=== PATIENT | male | born 1985 ===

== ENCOUNTER 2020-11-19 16:11 | Emergency (ER) | payer BC ==
[2020-11-19] MEDS ORDERED: Ondansetron 4 MG/2 ML SDV IVPUSH ONE (16:50)
[2020-11-19] MEDS ORDERED: Sodium Chloride 0.9% 10 ML Syringe FLUSH PRN (16:50)
[2020-11-19] MEDS ORDERED: Ketorolac 30 MG/ML SDV IVPUSH ONE (16:50)
[2020-11-19] MEDS ORDERED: Sodium Chloride 0.9% 1,000 ML IV ONE (16:50)
[2020-11-19] MEDS ORDERED: Sodium Chloride 0.9% 2.5 ML Syringe FLUSH PRN (16:50)
--- NOTE | 2020-11-19 16:56 | EDM.PDOC ---
ED HPI GENERAL MEDICAL PROBLEM - General Chief Complaint: General Stated Complaint: LIVER PROBLEMS Time Seen by Provider: 11/19/20 16:14 Source of Information: Reports: Patient History Limitations: Reports: No Limitations - History of Present Illness INITIAL COMMENTS - FREE TEXT/NARRATIVE: HISTORY AND PHYSICAL: History of present illness: Patient is a 34-year-old male who presents to the emergency department after he was notified by the urgent care that he needed to be seen in the emergency department for a low white blood cell count and he is not sure what else. The patient had presented to the urgent care for complaints of coughing, diarrhea, headache for approximately 10 days. The patient states that he was told he was Covid negative. The patient states that his symptoms have been unchanged since earlier. He does deny any abdominal pain. He denies shortness of breath. He states that he has been attempting to eat but just has not had an appetite. He denies any urinary symptoms. In the emergency department the patient is hemodynamically stable at 150/83 with a pulse of 89. The patient is in no respiratory distress as his respiratory rate is 18 with an SPO2 of 93% on room air. The patient is afebrile with a temperature of 97.8. Review of systems: As per history of present illness and below otherwise all systems reviewed and negative. Past medical history: As per history of present illness and as reviewed below otherwise noncontributory. Surgical history: As per history of present illness and as reviewed below otherwise noncontributory. Social history: See social history for further information Family history: As per history of present illness and as reviewed below otherwise noncontributory. Physical exam: General: Well developed and well nourished. Alert and orientated x 3. Nontoxic in appearance and in no acute distress. Vital signs are stable and have been reviewed by me. Nursing notes were reviewed. HEENT: Atraumatic, normocephalic, pupils equal and reactive bilaterally, negative for conjunctival pallor or scleral icterus, mucous membranes moist, TMs normal bilaterally, throat clear, neck supple, nontender, trachea midline. No drooling or trismus noted. No meningeal signs. No hot potato voice noted. Lungs: Clear to auscultation bilaterally. No wheezes, rales, or rhonchi. Chest nontender. Normal work of breathing, no accessory muscles used. Heart: S1S2, regular rate and rhythm without overt murmur, gallops, or rubs. No JVD. No peripheral edema Abdomen: Soft, nondistended, nontender. Normoactive bowel sounds. Negative for masses or costovertebral tenderness. Skin: Intact, warm, dry. No lesions or rashes noted. Hematologic: No petechiae or purpra. Mucosa appropriate color and normal nail bed color and refill. Extremities: Atraumatic, moves all extremities per self without difficulty or deficits, negative for cords or calf pain. Neurovascular unremarkable. Neuro: Awake, alert, oriented. Cranial nerves II through XII unremarkable. Cerebellum unremarkable. Motor and sensory unremarkable throughout. Exam nonfocal. Psychiatric: Mood and affect are appropriate. Normal thought process. Answering questions appropriately. Notes: *This patient was seen and evaluated during the 2019 SARS-CoV-2 novel coronavirus pandemic period. Community viral transmission is ongoing at time of this encounter and the emergency department is operating under pandemic response procedures. Outpatient chest x-ray impression: Mild interstitial opacities in the lower lungs bilaterally per radiologist. The patient's outpatient CBC showed a WBC count of 2.59 and a platelet count of 87. The patient's CMP was remarkable for a glucose of 162, calcium 8.1, AST 118, and ALT 13. His COVID-19 swab was negative. Nurse boom Cross office called and asked the patient to go to the emergency room with his low white blood cell count and platelet count of 87. Upon calling nurse boom Cross's office she stated that she wanted the patient scanned as his COVID-19 was negative she was unsure of the decreased white blood cell count and the platelet count. This all could be explained by a viral illness. I spoke with the patient and verbalized nurse boom Crosss concerns and wants. The patient is agreeable with an abdominal/pelvis CT scan. I will treat the patient's nausea and vomiting with IV fluids, Zofran, and treat his discomfort with Toradol. Abdominal pelvis CT IMPRESSION: 1. No dilated bowel or focal inflammation. 2. Bilateral ground-glass opacities and patchy consolidation within both lungs suggestive of pneumonia. Viral pneumonia including COVID-19 would be a consideration for this appearance. The patient's CT blood work are suggestive of the patient having COVID-19 even though his COVID-19 swab was negative. The patient is on day 10 and I have instructed him as that he needs to treat his symptoms. His O2 saturation is normal at 93% on room air with a respiratory rate of 18. I have talked with the patient about today's findings, in addition to providing specific details for plan of care. Reassessment at the time of disposition demonstrates that the patient is in no acute distress. The patient is stable for discharge, counseling was provided and we discussed in great detail signs and symptoms that would prompt them to return to the Emergency Department. Medication, follow up and supportive care measures were reviewed and discussed. Voices understanding and is agreeable to plan of care. Denies any further questions or concerns at this time. Diagnostics: Abdomen pelvis CT Therapeutics: IV fluids, Zofran, Toradol Impression: Viral illness Plan: 1. You were evaluated today on an emergent basis. Your complaints of low white blood cell count and a low platelet count was evaluated with a abdominal and pelvic CT. Your CT showed bilateral viral pneumonia suggestive of COVID-19. Even though your COVID-19 test was negative all your test results are indicative of having Covid. At this point I would say you are COVID-19 and should quarantine, however, as you are at the 10-day point this might be a moot point for you. I would treat your symptoms. Get plenty of rest. And make sure you take in plenty of fluids. 2. You can alternate Tylenol and ibuprofen as needed for pain and fever management. 3. We encourage you to follow up with your primary care provider and/or recommended specialist in the next few days for re-evaluation and further care/management. 4. If your symptoms should worsen, new symptoms develop or any of the signs and symptoms we discussed should arise please return to the emergency room or call 911 (if needed). Definitive disposition and diagnosis as appropriate pending reevaluation and review of above. Right Head Pain Score (Numeric/FACES): 6 - Related Data Allergies Allergy/AdvReac Type Severity Reaction Status Date / Time No Known Allergies Allergy Verified 11/19/20 16:30 Home Meds: Home Meds . [No Known Home Meds] 11/19/20 [History] Past Medical History - Past Health History Medical/Surgical History: Denies Medical/Surgical History - Infectious Disease History Infectious Disease History: Reports: None Social & Family History - Family History Family Medical History: No Pertinent Family History - Tobacco Use Tobacco Use Status *Q: Never Tobacco User - Caffeine Use Caffeine Use: Reports: Coffee, Soda - Recreational Drug Use Recreational Drug Use: No ED ROS GENERAL - Review of Systems Review Of Systems: Comprehensive ROS is negative, except as noted in HPI. ED EXAM, GENERAL - Physical Exam Exam: See Below (See dictation) Course - Vital Signs Last Recorded V/S: Last Vital Signs Temp 97.2 F 11/19/20 18:46 Pulse 83 11/19/20 18:46 Resp 18 11/19/20 18:46 BP 126/68 11/19/20 18:46 Pulse Ox 93 L 11/19/20 18:46 - Orders/Labs/Meds Meds: Medications Discontinued Medications Generic Name Dose Route Start Last Admin Trade Name Freq PRN Reason Stop Dose Admin Sodium Chloride 1,000 mls @ 999 mls/hr 11/19/20 16:50 11/19/20 17:36 Normal Saline IV 11/19/20 17:50 999 mls/hr .BOLUS ONE Administration Iopamidol 100 ml 11/19/20 17:26 11/19/20 17:27 Iopamidol 755 Mg/Ml 500 Ml Multipack Bottle IVPUSH 11/19/20 17:27 100 ml ONETIME ONE Administration Ketorolac Tromethamine 30 mg 11/19/20 16:50 11/19/20 17:37 Ketorolac 30 Mg/Ml Sdv IVPUSH 11/19/20 16:51 30 mg ONETIME ONE Administration Ondansetron HCl 4 mg 11/19/20 16:50 11/19/20 17:37 Ondansetron 4 Mg/2 Ml Sdv IVPUSH 11/19/20 16:51 4 mg ONETIME ONE Administration Sodium Chloride 10 ml 11/19/20 16:50 11/19/20 17:37 Sodium Chloride 0.9% 10 Ml Syringe FLUSH 10 ml ASDIRECTED PRN Administration Keep Vein Open Sodium Chloride 2.5 ml 11/19/20 16:50 11/19/20 17:37 Sodium Chloride 0.9% 2.5 Ml Syringe FLUSH 2.5 ml ASDIRECTED PRN Administration Keep Vein Open Departure - Departure Time of Disposition: 18:39 Disposition: Home, Self-Care 01 Condition: Good Clinical Impression: COVID-19 - Discharge Information *PRESCRIPTION DRUG MONITORING PROGRAM REVIEWED*: Not Applicable *COPY OF PRESCRIPTION DRUG MONITORING REPORT IN PATIENT FRANKIE: Not Applicable Instructions: COVID-19: What Your Test Results Mean - [facility] (07/12/2019) Referrals: Lroa Harkins [Primary Care Provider] - Forms: ED Department Discharge Additional Instructions: The following information is given to patients seen in the emergency department who are being discharged to home. This information is to outline your options for follow-up care. We provide all patients seen in our emergency department w ith a follow-up referral. The need for follow-up, as well as the timing and circumstances, are variable depending upon the specifics of your emergency department visit. If you don't have a primary care physician on staff, we will provide you with a referral. We always advise you to contact your personal physician following an emergency department visit to inform them of the circumstance of the visit and for follow-up with them and/or the need for any referrals to a consulting specialist. The emergency department will also refer you to a specialist when appropriate. This referral assures that you have the opportunity for follow-up care with a specialist. All of these measure are taken in an effort to provide you with optimal care, which includes your follow-up. Under all circumstances we always encourage you to contact your private physician who remains a resource for coordinating your care. When calling for follow-up care, please make the office aware that this follow-up is from your recent emergency room visit. If for any reason you are refused follow-up, please contact the [facility] Emergency Department at and asked to speak to the emergency department charge nurse. Claudia Delgado [facility] [address] [place] [id number] [address] [address] Plan: 1. You were evaluated today on an emergent basis. Your complaints of low white blood cell count and a low platelet count was evaluated with a abdominal and pelvic CT. Your CT showed bilateral viral pneumonia suggestive of COVID-19. Even though your COVID-19 test was negative all your test results are indicative of having Covid. At this point I would say you are COVID-19 and should quarantine, however, as you are at the 10-day point this might be a moot point for you. I would treat your symptoms. Get plenty of rest. And make sure you take in plenty of fluids. 2. You can alternate Tylenol and ibuprofen as needed for pain and fever management. 3. We encourage you to follow up with your primary care provider and/or recommended specialist in the next few days for re-evaluation and further care/management. 4. If your symptoms should worsen, new symptoms develop or any of the signs and symptoms we discussed should arise please return to the emergency room or call 911 (if needed).
[2020-11-19] MEDS ORDERED: Iopamidol 755 MG/ML 500 ML Multipack Bottle IVPUSH ONE (17:26)
--- NOTE | 2020-11-19 18:20 | CT ---
INDICATION: Thrombocytopenia TECHNIQUE: Axial images were obtained from the diaphragm to the pubic symphysis. Reformats were obtained in the coronal and sagittal plane. IV Contrast: 100 cc Isovue 370 Oral Contrast: None COMPARISON: None. FINDINGS: Lower chest: Ground-glass opacities and some consolidation within both lung bases. Liver: Unremarkable. Normal in size and attenuation. No masses. Gallbladder and bile ducts: Unremarkable. No stones or inflammation. No biliary dilatation. Spleen: Unremarkable. Normal in size without mass. Pancreas: Unremarkable. No mass or inflammation. Adrenal glands: Unremarkable. No nodules. Kidneys: Unremarkable. No masses, stones, or hydronephrosis. Vasculature: Unremarkable. GI tract: The stomach is unremarkable. No dilated loops of large or small intestine. Appendix unremarkable. Pelvis: Unremarkable. Bones: Spondylolysis L5. IMPRESSION: 1. No dilated bowel or focal inflammation. 2. Bilateral ground-glass opacities and patchy consolidation within both lungs suggestive of pneumonia. Viral pneumonia including COVID-19 would be a consideration for this appearance. Please note that all CT scans at this facility use dose modulation, iterative reconstruction, and/or weight-based dosing when appropriate to reduce radiation dose to as low as reasonably achievable. Dictated by Skip Matthew MD @ 11/19/2020 6:19:07 PM (Electronically Signed)
== END 2020-11-19 18:48 | disposition home or self-care (01) ==
LOC: MW.ED 16:11
DX: U07.1 COVID-19 (principal)
CPT/HCPCS: 74177; 96374; 96375; 99284; J1885; J2405; J7030; Q9967